=== PATIENT | female | born 1995 | race African-American/Black ===

== ENCOUNTER 2016-10-13 15:26 | Emergency (ER) | payer SELFPAY ==
[2016-10-13] MEDS ORDERED: DEXAMETHASONE SOD PHOS INJ 10 MG/1 ML VIAL IM ONE (17:08)
[2016-10-13] MEDS ORDERED: IBUPROFEN 800 MG TABLET PO ONE (17:08)
[2016-10-13] MEDS ORDERED: CLINDAMYCIN HCL 150 MG CAPSULE PO ONE (17:08)
--- NOTE | 2016-10-13 17:15 | ER Document Report ---
ED ENT - General Mode of Arrival: Ambulatory Information source: Patient TRAVEL OUTSIDE OF THE [place] IN LAST 30 DAYS: No - HPI Patient complains to provider of: Throat problem Onset: Other - 2days Onset/Duration: Persistent, Worse Quality of pain: Sharp Severity: Moderate Pain Level: 4 Location of pain: Throat Associated symptoms: Sore throat Similar symptoms previously: No Recently seen / treated by doctor: No - General Chief Complaint: Sore Throat Stated Complaint: SORE THROAT Time Seen by Provider: 10/13/16 16:05 Notes: 21-year-old female presents to ED for complaint of sore throat 2 days. She states she has pain in with swallowing. She denies any fever cough cold congestion or any cold symptoms. (CATINA MATA) - Related Data Allergies/Adverse Reactions: No Known Allergies Allergy (Verified 10/13/16 15:30) Past Medical History - General Information source: Patient - Social History Smoking Status: Former Smoker Cigarette use (# per day): No Chew tobacco use (# tins/day): No Smoking Education Provided: No Frequency of alcohol use: None Drug Abuse: None Lives with: Alone Family History: Arthritis, DM Patient has suicidal ideation: No Patient has homicidal ideation: No - Past Medical History Cardiac Medical History: Reports: None Pulmonary Medical History: Reports: None EENT Medical History: Reports: None Neurological Medical History: Reports: None Endocrine Medical History: Reports: None Renal/ Medical History: Reports: None Malignancy Medical History: Reports: None GI Medical History: Reports: None Musculoskeltal Medical History: Reports None Skin Medical History: Reports None Psychiatric Medical History: Reports: None Traumatic Medical History: Reports: None Infectious Medical History: Reports: None Surgical Hx: Negative Past Surgical History: Reports: None - Immunizations Immunizations up to date: No Hx Diphtheria, Pertussis, Tetanus Vaccination: No Review of Systems - Review of Systems Constitutional: No symptoms reported EENT: Throat pain. denies: Difficulty swallowing - Pain with swallowing Cardiovascular: No symptoms reported Respiratory: No symptoms reported Gastrointestinal: No symptoms reported Genitourinary: No symptoms reported Female Genitourinary: No symptoms reported Musculoskeletal: No symptoms reported Skin: No symptoms reported Hematologic/Lymphatic: No symptoms reported Neurological/Psychological: No symptoms reported Physical Exam - Vital signs Interpretation: Normal - General General appearance: Appears well, Alert - HEENT Head: Normocephalic, Atraumatic Eyes: Normal Pupils: PERRL Ears: Normal External canal: Normal Tympanic membrane: Normal Sinus: Normal Nasal: Normal Mouth/Lips: Normal Pharynx: Erythema, Peritonsillar abscess - Left, consulted Dr. Sahni he stated is not large enough to do an I&D., Tonsillar hypertrophy - Respiratory Respiratory status: No respiratory distress Chest status: Nontender Breath sounds: Normal Chest palpation: Normal - Cardiovascular Rhythm: Regular Heart sounds: Normal auscultation Murmur: No - Abdominal Inspection: Normal Distension: No distension Bowel sounds: Normal Tenderness: Nontender Organomegaly: No organomegaly - Back Back: Normal, Nontender - Extremities General upper extremity: Normal inspection, Nontender, Normal color, Normal ROM , Normal temperature General lower extremity: Normal inspection, Nontender, Normal color, Normal ROM , Normal temperature, Normal weight bearing. No: Lucero's sign - Neurological Neuro grossly intact: Yes Cognition: Normal Orientation: AAOx4 [place] Coma Scale Eye Opening: Spontaneous [place] Coma Scale Verbal: Oriented [place] Coma Scale Motor: Obeys Commands [place] Coma Scale Total: 15 Speech: Normal Motor strength normal: LUE, RUE, LLE, RLE Sensory: Normal - Psychological Associated symptoms: Normal affect, Normal mood - Skin Skin Temperature: Warm Skin Moisture: Dry Skin Color: Normal - Vital signs Vitals: Temp Pulse Resp BP Pulse Ox 98.8 F 108 H 12 134/75 H 98 10/13/16 15:30 10/13/16 15:30 10/13/16 15:30 10/13/16 15:30 10/13/16 15:30 Course - Re-evaluation Re-evalutation: 10/13/16 17:[address] Sahni for peritonsillar abscess to the left side. He came and examined the patient stated that she did not need an I&D of the abscess at this time but she did need clindamycin, Decadron, and ibuprofen. These medications were ordered and will she will be sent home with prescription for ibuprofen and clindamycin and instructions to follow-up with ENT tomorrow. (CATINA MATA) 10/13/16 18:45 Pt seen and examined. 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 Protecting airway and swallowing without difficulty. Spoke to patient about performing bedside I&D, but do not think that there would be much drainage due to the small size of the ROUNDHOUSE WORKER. Recommend beginning Decadron, clindamycin and anti-inflammatories with follow-up at ENT tomorrow. Given very strict return precautions and patient understands. (HERIBERTO SAHNI) - Vital Signs Vital signs: Temp Pulse Resp BP Pulse Ox 98.6 F 78 18 138/78 H 98 10/13/16 17:28 10/13/16 17:28 10/13/16 17:28 10/13/16 17:28 10/13/16 17:28 Discharge - Discharge Clinical Impression: Peritonsillar abscess Condition: Stable Disposition: HOME, SELF-CARE Additional Instructions: Dai-Tonsillar Abscess You have a dai-tonsillar abscess, a pus-filled swelling adjacent to the tonsil. Some abscesses may be left to drain on their own, but most require opening or lancing. It may be a couple of days before the abscess is ready to joanie or to differentiate an abscess from just local tissue infection called cellulitis. An antibiotic may prevent spread of the infection and a steroid medication may reduce the swelling. Once the abscess is opened, either on its own or by lancing it, the wound will heal with surprisingly little scar. Depending on the size of an abscess, healing can take one to four weeks. If you develop fever, chills, worsening pain, or increasing swelling in the area, call the doctor or return immediately. The major risk of a dai- tonsillar abscess is that it may swell so much that it impinges on your airway and can lead to dangerous obstruction of your breathing. If that seems to be developing, you should seek immediate emergency re-evaluation and care. Ibuprofen Ibuprofen is an excellent, safe drug for pain control. In addition, it has potent antiinflammatory effects which are beneficial, especially in the treatment of injuries, arthritis, or tendonitis. It's best to take ibuprofen with food. Persons with ulcer disease or allergy to aspirin should notify their physician of this before taking ibuprofen. Take the medication exactly as prescribed. Don't take additional doses unless instructed to do so by your doctor. If you develop wheezing, shortness of breath, hives, faintness, stomach pain, vomiting, or dark black stools, return for re-evaluation at once. STEROID MEDICATION: You have been given an injection of medicine of the cortisone/steroid class. This medication is used to control inflammation or allergy. It is often continued as a pill for a short period of time, until the acute process subsides. There are usually no side effects from short-term use of cortisone-like medications. Some persons feel an increased sense of well-being and are not sleepy at bedtime. Long-term use of cortisone medications is best avoided, unless required for a severe condition. If your condition does not remit, or relapses after the course of corticosteroid medication, you should consult your physician. Clindamycin You have been given a prescription for the antibiotic clindamycin. It is often prescribed for infections in the mouth, such as dental infections or abscesses, and for skin infections due to MRSA. It's important that you take all the medication, unless instructed otherwise by your physician. Failure to complete the entire course can result in relapse of your condition. Common side effects of antibiotics include nausea, intestinal cramping, or diarrhea. Women may develop vaginal yeast infections, and babies can get yeast (thrush) in the mouth following the use of antibiotics. Contact your physician if you develop significant side effects from this medication. Allergy to this antibiotic can result in hives, wheezing, faintness, or itching. If symptoms of allergy occur, stop the medication and call the doctor. FOLLOW-UP CARE: If you have been referred to a physician for follow-up care, call the physician s office for an appointment as you were instructed or within the next two days. If you experience worsening or a significant change in your symptoms, notify the physician immediately or return to the Emergency Department at any time for re-evaluation. Prescriptions: Ibuprofen [Motrin 600 mg Tablet] 600 mg PO Q8HP PRN #20 tablet PRN Reason: Clindamycin HCl [Cleocin 300 mg Capsule] 300 mg PO Q6 #28 capsule Forms: Elevated Blood Pressure
[2016-10-13 17:29] VITALS: BP 138/78
== END 2016-10-13 17:29 | disposition home or self-care (01) ==
LOC: ER 15:26
DX: J36 Peritonsillar abscess (principal); Z87.891 Personal history of nicotine dependence
CPT/HCPCS: 99282; 96372; J1100

== ENCOUNTER 2017-11-15 20:18 | Emergency (ER) | payer OTHER ==
[2017-11-15 20:25] VITALS: BP 121/66
[2017-11-15 21:49] LABS: AMORPHOUS SEDIMENT,URINE TRACE /HPF; APPEARANCE,URINE CLOUDY; BILIRUBIN,URINE NEGATIVE (NEGATIVE); COLOR,URINE DARK YELLOW; GLUCOSE, URINE NEGATIVE (NEGATIVE); KETONES,URINE 80 mg/dL (NEGATIVE); LEUKOCYTE ESTERASE,URINE TRACE (NEGATIVE); NITRITE,URINE NEGATIVE (NEGATIVE); PROTEIN,URINE 30 mg/dL (NEGATIVE); URINE SPECIFIC GRAVITY 1.029
--- NOTE | 2017-11-15 22:42 | ER Document Report ---
ED GI/ - General Chief Complaint: Urinary Problem Stated Complaint: PAINFUL URINATION Time Seen by Provider: 11/15/17 21:14 Information source: Patient Notes: Patient is a 22-year-old female comes emergency room complaining of burning with urination today. She states that the discomfort started earlier this afternoon and is not gotten any better. She does tell me that she is on the double shot so she has not had regular periods and does not remember the last one. She denies any vaginal discharge but does state that occasionally she has stress incontinence and her urine just comes out. Also tells me that she had to sit for an hour before she gave us her urine sample today. She denies any fever no nausea no vomiting dyspareunia. She is sexually active with one partner. TRAVEL OUTSIDE OF THE [place] IN LAST 30 DAYS: No - HPI Patient complains to provider of: No: Abdominal pain Onset: This morning Timing/Duration: Gradual, Persistent Severity at maximum: Moderate Pain Level: 3 Location: Suprapubic LMP: On Depo-Provera Sexual history: Active Associated symptoms: Dysuria, Urinary hesitancy, Urinary frequency, Urinary retention, Urinary urgency Exacerbated by: Denies Relieved by: Denies Similar symptoms previously: Yes Recently seen / treated by doctor: No - Related Data Allergies/Adverse Reactions: No Known Allergies Allergy (Verified 10/13/16 15:30) Past Medical History - General Information source: Patient - Social History Smoking Status: Never Smoker Cigarette use (# per day): No Chew tobacco use (# tins/day): No Smoking Education Provided: No Family History: Reviewed & Not Pertinent, Arthritis, DM Patient has suicidal ideation: No Patient has homicidal ideation: No Renal/ Medical History: Denies: Hx Peritoneal Dialysis - Immunizations Immunizations up to date: No Hx Diphtheria, Pertussis, Tetanus Vaccination: No Review of Systems - Review of Systems Constitutional: No symptoms reported EENT: No symptoms reported Cardiovascular: No symptoms reported Respiratory: No symptoms reported Gastrointestinal: No symptoms reported Genitourinary: Burning, Dysuria, Frequency, Incontinence, Urgency, Retention Female Genitourinary: No symptoms reported Musculoskeletal: No symptoms reported Skin: No symptoms reported Hematologic/Lymphatic: No symptoms reported Neurological/Psychological: No symptoms reported -: Yes All other systems reviewed and negative Physical Exam - Vital signs Vitals: Temp Pulse Resp BP Pulse Ox 98.7 F 81 19 121/66 98 11/15/17 20:24 11/15/17 20:24 11/15/17 20:24 11/15/17 20:24 11/15/17 20:24 Interpretation: Normal - Notes Notes: Patient is a well-nourished well-developed 22-year-old female no apparent distress. - General General appearance: Appears well, Alert - HEENT Head: Normocephalic, Atraumatic Eyes: Normal - Respiratory Respiratory status: No respiratory distress Chest status: Nontender Breath sounds: Normal. No: Productive cough, Rales, Rhonchi, Stridor, Wheezing Chest palpation: Normal - Cardiovascular Rhythm: Regular Heart sounds: Normal auscultation Murmur: No - Abdominal Inspection: Normal Distension: No distension Bowel sounds: Normal Tenderness: Tender, Other - Suprapubic tenderness to palpation.. No: Nontender , McBurney's point, Byrd's sign, Guarding Organomegaly: No: No organomegaly - Neurological Neuro grossly intact: Yes Cognition: Normal Orientation: AAOx4 [place] Coma Scale Eye Opening: Spontaneous [place] Coma Scale Verbal: Oriented [place] Coma Scale Motor: Obeys Commands [place] Coma Scale Total: 15 Speech: Normal Course - Re-evaluation Re-evalutation: 11/15/17 22:38 Patient Z urine was not a urinary tract infection. She had no leukocytes that she had no WBCs to speak of. Therefore I did not feel it appropriate to just treat with an antibiotic. I went in and offered patient the option of having a pelvic exam and she told me that her MANAGER CONTRACTING to called her on Thursday and wanted there to contact our office back. When I have asked her last time she had seen her MANAGER CONTRACTING she could not tell me. She then tells me that she will wait until tomorrow and talk to her MANAGER CONTRACTING about why she is having difficulty with urination. She does not want me to do a pelvic here tonight. I have agreed to give her some Pyridium I will give her a dose here and write her for a few pills so that will relieve her discomfort. Again I see no reason to give an antibiotic at this point until we know what we are treating. Informed patient that she may return to ER if she has any concerns or problems would be more than happy to do a more in-depth workup. - Vital Signs Vital signs: Temp Pulse Resp BP Pulse Ox 98.7 F 81 19 121/66 98 11/15/17 20:24 11/15/17 20:24 11/15/17 20:24 11/15/17 20:24 11/15/17 20:24 - Laboratory Laboratory results interpreted by me: 11/15/17 21:30 Urine Protein 30 H Urine Ketones 80 H Urine Blood SMALL H Urine Urobilinogen 4.0 H Ur Leukocyte Esterase TRACE H Discharge - Discharge Clinical Impression: Dysuria Condition: Stable Disposition: HOME, SELF-CARE Instructions: Pelvic Pain ([facility]) Additional Instructions: Home and rest. Medication as prescribed. The Pyridium will turn your urine bright orange. But it should help with the spasms and the discomfort. You have indicated to me that you want to go back to your [employer] the you know well for a pelvic exam if he needed and for further investigation as to why you are having the symptoms without having an actual urinary tract infection. I have no problem with that and would encourage you to return here if for any reason you cannot see your primary tomorrow. Prescriptions: Phenazopyridine HCl [Pyridium 200 mg Tablet] 200 mg PO TID #6 tablet Forms: Return to Work Referrals: RAMSEY JACINTO MD [Primary Care Provider] - Follow up as needed
[2017-11-15] MEDS ORDERED: PHENAZOPYRIDINE HCL 200 MG TABLET PO ONE (22:46)
== END 2017-11-15 23:22 | disposition home or self-care (01) ==
LOC: ER 20:18
DX: R30.0 Dysuria (principal)
CPT/HCPCS: 99283; 81001; J3490

== ENCOUNTER 2017-11-17 10:47 | Emergency (ER) | payer OTHER ==
[2017-11-17 10:53] VITALS: BP 125/78
--- NOTE | 2017-11-17 11:46 | ER Document Report ---
ED Medical Screen (RME) - General Chief Complaint: Vaginal Pain Stated Complaint: VAGINAL PAIN Time Seen by Provider: 11/17/17 11:34 TRAVEL OUTSIDE OF THE [place] IN LAST 30 DAYS: No - HPI Onset: Other - 22-year-old female presents for evaluation of pelvic pain which she associates with her well and out sexual partner. Endorses some persistent burning with peeing. She is continued to have some dyspareunia. no fevers no chills no abdominal pain, no baack pain - Related Data Allergies/Adverse Reactions: No Known Allergies Allergy (Verified 11/17/17 10:52) Past Medical History Renal/ Medical History: Denies: Hx Peritoneal Dialysis - Immunizations Immunizations up to date: No Hx Diphtheria, Pertussis, Tetanus Vaccination: No Physical Exam - Vital signs Vitals: Temp Pulse Resp BP Pulse Ox 99.7 F 111 H 14 125/78 97 11/17/17 10:52 11/17/17 10:52 11/17/17 10:52 11/17/17 10:52 11/17/17 10:52 Course - Re-evaluation Re-evalutation: 11/17/17 19:21 This 22-year-old female has undergone a rapid medical examination, she may require further examination through secondary provider. We will obtain urinalysis she may require further work up will defer further investigation disposition to secondary provider. - Vital Signs Vital signs: Temp Pulse Resp BP Pulse Ox 99.7 F 111 H 14 125/78 97 11/17/17 10:52 11/17/17 10:52 11/17/17 10:52 11/17/17 10:52 11/17/17 10:52 Doctor's Discharge - Discharge Clinical Impression: Dysuria Condition: Good Disposition: AGAINST MEDICAL ADVICE Additional Instructions: You are leaving without completing any medical workup today. You presented complaining that it hurts when you pee. We have offered to treat your pain using a Toradol shot, we have given you Pyridium to help numb your bladder when you urinate and we have also offered to use a catheter to try and figure out what is going on to get the urine specimen. You have refused all of these options. Your symptoms do sound suspicious for urinary tract infection, they could also represent a sexually transmitted disease. I have offered to check you for sexually transmitted diseases and you are refusing this. Because I do think some of your pain is probably coming from a urinary tract infection I am going to prescribe empiric antibiotics in the form of Macrobid. This means I am taking my best guess at what is likely causing your infection and treating for it. There is a possibility that I may be wrong and you may not get better. Please return at any time to have your urine checked so we can make sure we are accurately treating you. Please also return at any time should you get worse. By leaving without actually having testing for sexually transmitted diseases you are at risk for infertility, abscesses in your abdomen or even from this type of an infection. You can also have this testing completed at the health department for free. Prescriptions: Nitrofurantoin/Nitrofuran Mac [Macrobid 100 mg Capsule] 1 tab PO BID #20 capsule Referrals: RAMSEY JACINTO MD [Primary Care Provider] - Follow up as needed
--- NOTE | 2017-11-17 13:02 | ER Document Report ---
ED General - General Mode of Arrival: Ambulatory Information source: Patient <DEANDRE AMEZQUITAHAMLET - Last Filed: 11/17/17 18:43> - General TRAVEL OUTSIDE OF THE [place] IN LAST 30 DAYS: No <IDA SOLITARIO - Last Filed: 11/17/17 18:47> - General Chief Complaint: Vaginal Pain Stated Complaint: VAGINAL PAIN Time Seen by Provider: 11/17/17 11:34 Notes: Patient is a 32-year-old female presenting to the emergency department complaining of dysuria and burning with urination onset 2 days ago. Patient states the pain is constant although non-radiating. She also complains of vaginal discharge. Patient states she had a new sexual partner a week ago although she did use a condom. Patient repeatedly asks for pain medications. Patient denies any fevers. (ALIRIOCAMMIE) - Related Data Allergies/Adverse Reactions: No Known Allergies Allergy (Verified 11/17/17 10:52) Past Medical History - General Information source: Patient - Social History Smoking Status: Current Every Day Smoker Chew tobacco use (# tins/day): No Frequency of alcohol use: None Drug Abuse: Marijuana Family History: Reviewed & Not Pertinent Patient has suicidal ideation: No Patient has homicidal ideation: No <CAMMIE AMEZQUITA - Last Filed: 11/17/17 18:43> - Social History Smoking Status: Never Smoker Chew tobacco use (# tins/day): No Frequency of alcohol use: None Drug Abuse: Marijuana Family History: Reviewed & Not Pertinent, Arthritis, DM Patient has suicidal ideation: No Patient has homicidal ideation: No Renal/ Medical History: Denies: Hx Peritoneal Dialysis - Immunizations Immunizations up to date: No Hx Diphtheria, Pertussis, Tetanus Vaccination: No <IDA SOLITARIO - Last Filed: 11/17/17 18:47> Review of Systems - Review of Systems Constitutional: No symptoms reported EENT: No symptoms reported Cardiovascular: No symptoms reported Respiratory: No symptoms reported Gastrointestinal: No symptoms reported Genitourinary: See HPI, Burning, Dysuria Female Genitourinary: See HPI Musculoskeletal: No symptoms reported Skin: No symptoms reported Hematologic/Lymphatic: No symptoms reported Neurological/Psychological: No symptoms reported -: Yes All other systems reviewed and negative <CAMMIE AMEZQUITA - Last Filed: 11/17/17 18:43> Physical Exam <ALIRIODEANDREHAMLET - Last Filed: 11/17/17 18:43> <IDA SOLITARIO - Last Filed: 11/17/17 18:47> - Vital signs Vitals: Temp Pulse Resp BP Pulse Ox 99.7 F 111 H 14 125/78 97 11/17/17 10:52 11/17/17 10:52 11/17/17 10:52 11/17/17 10:52 11/17/17 10:52 - Notes Notes: GENERAL: Alert, crying. No acute distress. HEAD: Normocephalic, atraumatic. EYES: Pupils equal, round, and reactive to light. Extraocular movements intact. ENT: Oral mucosa moist, tongue midline. NECK: Full range of motion. Supple. Trachea midline. LUNGS: Clear to auscultation bilaterally, no wheezes, rales, or rhonchi. No respiratory distress. HEART: Regular rate and rhythm. No murmurs, gallops, or rubs. ABDOMEN: Soft, non-tender. Non-distended. Bowel sounds present in all 4 quadrants. EXTREMITIES: Moves all 4 extremities spontaneously. NEUROLOGICAL: Alert and oriented x3. Normal speech. PSYCH: Crying. SKIN: Warm, dry, normal turgor. No rashes or lesions noted PELVIC: Tender to palpation to the introitus, no vesicles or skin lesions. Thick purrulent discharge coming form urethra and vaginal canal. (ALIRIOCAMMIE) Course <CAMMIE AMEZQUITA - Last Filed: 11/17/17 18:43> <IDA SOLITARIO - Last Filed: 11/17/17 18:47> - Re-evaluation Re-evalutation: 11/17/17 18:46 Patient states she is unable to urinate because it hurts too much. Patient offered a dose of Pyridium, states that she was already given Pyridium. When I checked the orders there is no record of Pyridium having been given. Patient states she would like some pain medication to make it so that it no longer goodrich when she urinates. Patient was offered Toradol to try and help with this pain. Patient asked if there is anything else we can give her to help with the burning and I told her that we do not use narcotics for dysuria. Patient stated that she is afraid to urinate. Offered to perform a straight catheter for the patient, also after doing external examination of the genitalia told patient that given the purulent discharge coming from her vagina I suspect she has a sexually transmitted disease and think we should test for this, patient refused to urinate for us and refused to allow me to collect swabs. Patient then left AGAINST MEDICAL ADVICE because she was afraid to urinate. (IDA SOLITARIO) - Vital Signs Vital signs: Temp Pulse Resp BP Pulse Ox 99.7 F 111 H 14 125/78 97 11/17/17 10:52 11/17/17 10:52 11/17/17 10:52 11/17/17 10:52 11/17/17 10:52 Discharge <CAMMIE AMEZQUITA - Last Filed: 11/17/17 18:43> <IDA SOLITARIO - Last Filed: 11/17/17 18:47> - Discharge Clinical Impression: Dysuria Condition: Good Disposition: AGAINST MEDICAL ADVICE Additional Instructions: You are leaving without completing any medical workup today. You presented complaining that it hurts when you pee. We have offered to treat your pain using a Toradol shot, we have given you Pyridium to help numb your bladder when you urinate and we have also offered to use a catheter to try and figure out what is going on to get the urine specimen. You have refused all of these options. Your symptoms do sound suspicious for urinary tract infection, they could also represent a sexually transmitted disease. I have offered to check you for sexually transmitted diseases and you are refusing this. Because I do think some of your pain is probably coming from a urinary tract infection I am going to prescribe empiric antibiotics in the form of Macrobid. This means I am taking my best guess at what is likely causing your infection and treating for it. There is a possibility that I may be wrong and you may not get better. Please return at any time to have your urine checked so we can make sure we are accurately treating you. Please also return at any time should you get worse. By leaving without actually having testing for sexually transmitted diseases you are at risk for infertility, abscesses in your abdomen or even from this type of an infection. You can also have this testing completed at the health department for free. Prescriptions: Nitrofurantoin/Nitrofuran Mac [Macrobid 100 mg Capsule] 1 tab PO BID #20 capsule Referrals: RAMSEY JACINTO MD [Primary Care Provider] - Follow up as needed Scribe Documentation - Scribe Written by Lee:: Lee Mendez, 11/17/2017 13:44 acting as scribe for :: Dory <CAMMIE AMEZQUITA - Last Filed: 11/17/17 18:43>
== END 2017-11-17 13:07 | disposition left against medical advice (07) ==
LOC: ER 10:47
DX: R30.0 Dysuria (principal); N89.8 Other specified noninflammatory disorders of vagina; F17.200 Nicotine dependence, unspecified, uncomplicated; F12.10 Cannabis abuse, uncomplicated; Z53.29 Procedure and treatment not carried out because of patient's decision for other reasons
CPT/HCPCS: 99283

== ENCOUNTER 2017-11-29 13:55 | Emergency (ER) | payer OTHER ==
[2017-11-29] MEDS ORDERED: MAGNESIUM CITRATE 296 ML BOTTLE PO ONE (15:37)
[2017-11-29 15:58] LABS: T.VAGINALIS (WET MOUNT) NO TRICHOMONAS SEEN; WBCS (WET MOUNT) 1+ WBCS SEEN; YEAST (WET MOUNT) NO YEAST SEEN
[2017-11-29] MEDS ORDERED: LIDOCAINE 1% INJ-PF (10 MG/ML) 30 ML SDV INJ ONE (16:54)
[2017-11-29] MEDS ORDERED: AZITHROMYCIN 250 MG TABLET PO ONE (16:54)
[2017-11-29] MEDS ORDERED: CEFTRIAXONE INJ 250 MG VIAL IM ONE (16:54)
--- NOTE | 2017-11-29 16:58 | ER Document Report ---
HPI - HPI Pain Level: 3 Notes: Patient is a 22-year-old female with complaint of lesions to the outside of her vagina. Patient states she was seen here a couple of weeks ago for a similar problem however she left without a complete workup. Patient reports that she had dysuria at that time which is now resolved however she reports that the sores on the outside of her vagina are very painful. Patient reports she has had a new sexual partner in the last 2 months however she states that he denies having any symptoms of sexually transmitted infections. Patient denies any abdominal pain, nausea, vomiting or diarrhea. - CONSTITUTIONAL Constitutional: DENIES: Fever, Chills - REPRODUCTIVE Reproductive: DENIES: : Past Medical History - General Information source: Patient - Social History Smoking Status: Never Smoker Chew tobacco use (# tins/day): No Drug Abuse: None Family History: Reviewed & Not Pertinent, Arthritis, DM Patient has suicidal ideation: No Patient has homicidal ideation: No - Medical History Medical History: Negative Renal/ Medical History: Denies: Hx Peritoneal Dialysis Surgical Hx: Negative - Immunizations Immunizations up to date: No Hx Diphtheria, Pertussis, Tetanus Vaccination: No Vertical Provider Document - CONSTITUTIONAL Notes: PHYSICAL EXAMINATION: GENERAL: Well-appearing, well-nourished and in no acute distress. HEAD: Atraumatic, normocephalic. EYES: Pupils equal round extraocular movements intact, conjunctiva are normal. ENT: Nares patent NECK: Normal range of motion LUNGS: No respiratory distress Musculoskeletal: Normal range of motion NEUROLOGICAL: Normal speech, normal gait. PSYCH: Normal mood, normal affect. SKIN: Warm, Dry, normal turgor, no rashes or lesions noted. Multiple vesicular lesions noted to external vagina - INFECTION CONTROL TRAVEL OUTSIDE OF THE [place] IN LAST 30 DAYS: No Course - Re-evaluation Re-evalutation: 11/29/17 17:15 Patient physical examination is consistent with herpes simplex virus. Patient reports she has had a new sexual partner. Patient reports that she had pain to the external vagina prior to the onset of the "rash". Patient's workup today was limited by her refusal to provide a urine sample. Furthermore when attempting to do a speculum examination patient was unable to stay in the proper position and stated that the speculum was too painful for her. I did do an external swab however this probably limited the findings on the wet mount. Patient did have a thick whitish yellow discharge Present on the external labia. Discussed possibility of sexually transmitted infections versus bacterial vaginosis versus yeast infection with patient. Patient very upset at the thought of having a sexually transmitted infection however she is agreeable to take the IM Rocephin and oral azithromycin. - Vital Signs Vital signs: Temp Pulse Resp BP Pulse Ox 98.7 F 98 16 125/74 100 11/29/17 14:06 11/29/17 14:06 11/29/17 14:06 11/29/17 14:06 11/29/17 14:06 Discharge - Discharge Clinical Impression: Vaginal discharge, Screening examination for STD (sexually transmitted disease) , Genital lesion, female Condition: Stable Disposition: HOME, SELF-CARE Additional Instructions: You have been treated today for exposure to possible sexually transmitted infections. Lesions around your vagina appear consistent with herpes. Please take the medications I have prescribed in their entirety. Please follow-up with your primary care provider or the health department for further testing. Do not have any unprotected sex until cleared by your primary care provider. Take Tylenol or ibuprofen as needed for pain. Prescriptions: Acyclovir [Acyclovir 400 mg Tablet] 400 mg PO TID #30 tablet Referrals: RAMSEY JACINTO MD [Primary Care Provider] - Follow up as needed
[2017-11-29 17:29] LABS: CHLAM PCR NOT DETECTED (NOT DETECT); GON PCR NOT DETECTED (NOT DETECT)
[2017-11-29 17:58] VITALS: BP 119/74
== END 2017-11-29 18:19 | disposition home or self-care (01) ==
LOC: ER 13:55
DX: N89.8 Other specified noninflammatory disorders of vagina (principal); N89.9 Noninflammatory disorder of vagina, unspecified; R30.0 Dysuria; Z20.2 Contact with and (suspected) exposure to infections with a predominantly sexual mode of transmission
CPT/HCPCS: 99283; 96372; 87210; 87250; 87491; 87591; J3490 ×2; J0696